=== PATIENT | female | born 1980 | race African-American/Black ===

== ENCOUNTER 2016-03-23 16:18 | Emergency (ER) | payer MEDICAID ==
[~2016-03-23] VITALS: Ht 167.6 cm; Wt 80.0 kg
[~2016-03-23 16:18] MED LIST: DOXY100C PO; IBUP-232 PO; IBUP800T23 PO; LORTA5 PO; MOBI15TA PO
[2016-03-23 16:20] VITALS: BP 164/93; PULSE 98; RESP 20; TEMP 98; O2SAT 100
--- NOTE | 2016-03-23 16:55 | PD ---
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 Patient reports that she found out a week ago that her was cheating on her, reports that for the past week she has noticed a foul-smelling odor from her vagina with thick discharge. Reports that she has noticed increased pruritus. Patient was told that she should be concerned for possible STD. Patient also reporting urinary urgency and frequency, concerned that she may possibly have UTI. Patient with no fevers or chills at this time. Patient with no abdominal pain. Patient no nausea or vomiting. PFSH Past Medical History Asthma: Yes Depression: Yes Diminished Hearing: No Respiratory: Yes (asthma) Immunizations Current: Yes ?: Not : 5 Para: 3 : 2 Tubal Ligation: Yes Past Surgical History Abdominal Surgery: Yes () Section: Yes (x2) Family History Family History: Negative Social History Alcohol Use: No (occ) Tobacco Use: Yes (6-7 cigs daily) Substance Use: No Allergies-Medications (Allergen,Severity, Reaction): Coded Allergies: No Known Allergies (Verified , 01/12/16) Reported Meds & Prescriptions Reported Meds & Active Scripts Active No Active Prescriptions or Reported Medications Review of Systems General / Constitutional: No: Fever Eyes: No: Visual changes HENT: No: Headaches Cardiovascular: No: Chest Pain or Discomfort Respiratory: No: Shortness of Breath Gastrointestinal: No: Abdominal Pain Genitourinary: Positive: Urgency, Frequency, Dysuria, No: Vaginal Bleeding Musculoskeletal: No: Pain Skin: No Rash Neurologic: No: Weakness Psychiatric: No: Depression Endocrine: No: Polydipsia Hematologic/Lymphatic: No: Easy Bruising Physical Exam Narrative GENERAL: No acute distress, nontoxic SKIN: Warm and dry. HEAD: Atraumatic. Normocephalic. EYES: Pupils equal and round. No scleral icterus. No injection or drainage. ENT: No nasal bleeding or discharge. Mucous membranes pink and moist. NECK: Trachea midline. No JVD. CARDIOVASCULAR: Regular rate and rhythm. No murmur appreciated. RESPIRATORY: No accessory muscle use. Clear to auscultation. Breath sounds equal bilaterally. GASTROINTESTINAL: Abdomen soft, non-tender, nondistended. : exam performed with RN at bedside, pt with no cmt or adnexal tenderness, pt with no discharge on eval MUSCULOSKELETAL: No obvious deformities. No clubbing. No cyanosis. No edema. NEUROLOGICAL: Awake and alert. No obvious cranial nerve deficits. Motor grossly within normal limits. Normal speech. PSYCHIATRIC: Patient anxious and upset emergency room, patient crying exam, patient denies SI or HI Data Data Last Documented VS Vital Signs Date Time Temp Pulse Resp B/P Pulse Ox O2 Delivery O2 Flow Rate FiO2 03/23/16 16:20 98.0 98 20 164/93 100 Room Air Orders Gc And Chlamydia Pcr (03/23/16 16:43) Wet Prep Profile (03/23/16 16:43) Urinalysis - C+S If Indicated (03/23/16 16:43) Ed Urine Pregnancytest Poc (03/23/16 16:43) Azithromycin Powd Pack (Zithromax Powd P (03/23/16 17:45) Ceftriaxone Inj (Rocephin Inj) (03/23/16 17:45) Lidocaine 1% Inj (50 Ml) (Xylocaine 1% I (03/23/16 17:45) Azithromycin (Zithromax) (03/23/16 18:15) Labs Laboratory Tests Test 03/23/16 03/23/16 17:15 17:35 Urine Color YELLOW Urine Turbidity HAZY Urine pH 6.0 Urine Specific [place] 1.029 Urine Protein TRACE mg/dL Urine Glucose (UA) NEG mg/dL Urine Ketones NEG mg/dL Urine Occult Blood NEG Urine Nitrite NEG Urine Bilirubin NEG Urine Urobilinogen 2.0 MG/DL Urine Leukocyte Esterase TRACE Urine RBC 1 /hpf Urine WBC 3 /hpf Urine Squamous Epithelial 30 /hpf Cells Urine Mucus MANY /lpf Microscopic Urinalysis Comment CULT NOT INDICATED Clue Cells (Wet Prep) NONE SEEN Vaginal Trichomonas (Wet Prep) NONE SEEN Vaginal Yeast (Wet Prep) NONE SEEN MDM Medical Decision Making Medical Screen Exam Complete: Yes Emergency Medical Condition: Yes Interpretation(s) Vital Signs Date Time Temp Pulse Resp B/P Pulse Ox O2 Delivery O2 Flow Rate FiO2 03/23/16 16:20 98.0 98 20 164/93 100 Room Air Vital Signs Date Time Temp Pulse Resp B/P Pulse Ox O2 Delivery O2 Flow Rate FiO2 03/23/16 16:20 98.0 98 20 164/93 100 Room Air Differential Diagnosis Cervicitis, urethritis, cystitis Narrative Course 35-year-old female who presents to emergency department for evaluation of possible STD. Patient reports that she has noticed increased thick discharge per vagina for the past week. Patient assumed that she had a yeast infection and tried using Monistat [id number] with no relief of symptoms. She recently found out that her has been cheating her and is concerned for possible STD ED test ordered UA ordered as pt is having UTI symptoms with dysuria/urgency/freq Plan to perform pelvic exam and check for G/C and Trich Pelvic exam performed with RN at bedside. Patient requests to be prophylactically treated for possible gonorrhea and chlamydia. Patient understands importance of follow up with cultures from today, understands if cultures are positive, her will need to be treated as well. Diagnosis Primary Impression: Cervicitis Patient Instructions: General Instructions Additional Instructions: Please return to ER as needed Please follow up with CULTURES from today Please refrain from sexual activities until all cultures have been resulted, if cultures are positive, all sexual partners will need to be treated Scripts No Active Prescriptions or Reported Meds Disposition: 01 DISCHARGE HOME Condition: Stable Eliza Chapman DO Mar 23, 2016 16:55
[2016-03-23] MEDS ORDERED: cefTRIAXone 250 MG VIAL IM ONE (17:45)
[2016-03-23] MEDS ORDERED: AZITHROMYCIN PWD FOR SUSP 1 GM PACKET PO ONE (17:45)
[2016-03-23] MEDS ORDERED: LIDOCAINE HCL 1% 50 ML VIAL IM ONE (17:45)
[2016-03-23 18:03] LABS: BLOOD, URINE NEG (NEG); COMMENT (UR) CULT NOT INDICATED; CULTURE IF INDICATED CULT NOT INDICATED; GLUCOSE,URINE NEG (NEG); KETONE, URINE NEG (NEG); MUCUS URINE MANY /lpf (OCC); NITRITE,URINE NEG (NEG); SQUAMOUS EPITHELIAL CELL URINE 30 /hpf (0-5); URINE COLOR YELLOW (YELLW/STRAW)
[2016-03-23] MEDS ORDERED: AZITHROMYCIN 250 MG TAB PO ONE (18:15)
[2016-03-23 20:07] LABS: CHLAMYDIA PCR NOT DETECTED (NOT DETECT); NEISSERIA PCR NOT DETECTED (NOT DETECT)
== END 2016-03-23 18:43 | disposition home or self-care (01) ==
LOC: NEPE 16:18
DX: N72 Inflammatory disease of cervix uteri (principal)
CPT/HCPCS: 81001; 84703; 87210; 87491; 87591; 96372; 99283; J0696

== ENCOUNTER 2016-05-11 17:29 | Emergency (ER) | payer MEDICAID, OTHER ==
[~2016-05-11] VITALS: Ht 167.6 cm; Wt 77.2 kg
[2016-05-11 17:30] VITALS: BP 163/86; PULSE 98; RESP 20; TEMP 97.5; O2SAT 100
[2016-05-11] MEDS ORDERED: DICL50TA3 PO (19:05)
[2016-05-11] MEDS ORDERED: AMOX500C PO (19:05)
--- NOTE | 2016-05-11 19:09 | PD ---
HPI Chief Complaint: Oral / Dental Pain or Problem Time Seen by Provider: 19:07 Travel History International Travel<30 days: No Contact w/Intl Traveler<30days: No Traveled to known affect area: No History of Present Illness HPI 35-year-old black female presents to emergency department with complains of right upper tooth #1 pain. She states that part of her tooth has been breaking off. She's had a dental carry in this tooth for some time. She states the pain is moderate to severe. Radiates to her right ear. No alleviating factors. PFSH Past Medical History Asthma: Yes Depression: Yes Diminished Hearing: No Respiratory: Yes (asthma) Immunizations Current: Yes Tetanus Vaccination: > 5 Years ?: Not LMP: DEPO : 5 Para: 3 : 2 Tubal Ligation: Yes Past Surgical History Abdominal Surgery: Yes () Section: Yes (x2) Social History Alcohol Use: Yes (occ) Tobacco Use: Yes (6-7 cigs daily) Substance Use: No Allergies-Medications (Allergen,Severity, Reaction): Coded Allergies: No Known Allergies (Verified , 05/11/16) Reported Meds & Prescriptions Reported Meds & Active Scripts Active Diclofenac Sodium DR (Diclofenac Sodium) 50 Mg Tabdr 50 Mg PO TID Amoxicillin 500 Mg Cap 500 Mg PO TID Review of Systems Except as stated in HPI: all other systems reviewed are Neg Physical Exam Narrative GENERAL: Well-developed, well-nourished in no acute distress. Nontoxic appearing. HEAD: Normocephalic, atraumatic. EYES: Pupils equal round and reactive. Extraocular motions intact. No scleral icterus. No injection or drainage. ENT: TMs clear without erythema. The external auditory canals clear. Nose: clear . Posterior pharynx is pink and moist. No tonsillar edema or exudate. Uvula midline. Airway patent. Patient has a large dental carry in tooth #1. The tooth is decayed nearly to the gumline. There is gingival erythema but no edema. No obvious abscess. NECK: Trachea midline.Supple, nontender, moves head freely. No central bony tenderness or spasm. CARDIOVASCULAR: Regular rate and rhythm without murmurs, gallops, or rubs. RESPIRATORY: Clear to auscultation. Breath sounds equal bilaterally. No wheezes , rales, or rhonchi. GASTROINTESTINAL: Abdomen soft, non-tender, nondistended. No hepato-splenomegaly , or palpable masses. No guarding. EXTREMITIES: No clubbing, cyanosis, or edema. No joint tenderness, effusion, or edema noted. BACK: Nontender without deformity or crepitance. No flank tenderness. Data Data Last Documented VS Vital Signs Date Time Temp Pulse Resp B/P Pulse Ox O2 Delivery O2 Flow Rate FiO2 05/11/16 17:30 97.5 98 20 163/86 100 Room Air Orders Amoxicillin (Trimox) (05/11/16 19:15) Acetamin-Hydrocod 325-5 Mg ([place] 5-325 (05/11/16 19:15) MDM Medical Decision Making Medical Screen Exam Complete: Yes Emergency Medical Condition: Yes Medical Record Reviewed: Yes Differential Diagnosis MDM: Moderate Differential diagnoses: Dental abscess, dental caries, osteitis, cellulitis Narrative Course Patient given amoxicillin 500 and Lortab 5 mg. This is dental caries, dentalgia Diagnosis Primary Impression: Dental caries Additional Impression: Dentalgia Patient Instructions: Narcotic given in the ED, General Instructions Additional Instructions: Rest. Saltwater gargles. Sunflower oil on cotton balls. Amoxicillin and diclofenac. follow-up with a dentist as soon as possible. And return to the ER if any problems. Med/Other Pt SpecificInfo: Prescription(s) given Scripts Diclofenac Sodium DR 50 Mg Tabdr50 Mg PO TID #21 TAB Prov:Princess Nice MD 05/11/16 Amoxicillin 500 Mg [id number] Mg PO TID #30 CAP Prov:Princess Nice MD 05/11/16 Disposition: 01 DISCHARGE HOME Condition: Stable José Isabel May 11, 2016 19:09
[2016-05-11] MEDS ORDERED: AMOXICILLIN (TRIHYDRATE) 500 MG CAP PO ONE (19:15)
[2016-05-11] MEDS ORDERED: ACETAMINOPHEN/HYDROcodone 325 MG/5 MG TAB PO ONE (19:15)
== END 2016-05-11 19:27 | disposition home or self-care (01) ==
LOC: NEPB 17:29
DX: K02.9 Dental caries, unspecified (principal); K08.89 Other specified disorders of teeth and supporting structures
CPT/HCPCS: 99282

== ENCOUNTER 2016-11-25 12:28 | Emergency (ER) | payer MEDICAID ==
[~2016-11-25] VITALS: Ht 170.2 cm; Wt 75.0 kg
[~2016-11-25 12:28] MED LIST changes: +AMOX500C PO; +DICL50TA3 PO; -DOXY100C PO; -IBUP-232 PO; -IBUP800T23 PO; -LORTA5 PO; -MOBI15TA PO
[2016-11-25 12:31] VITALS: BP 132/73; PULSE 102; RESP 17; TEMP 98.4; O2SAT 98
[2016-11-25] MEDS ORDERED: PERM5CRE11 TOPICAL (14:05)
--- NOTE | 2016-11-25 14:13 | PD ---
HPI Chief Complaint: Skin Problem Time Seen by Provider: 13:51 Travel History International Travel<30 days: No Contact w/Intl Traveler<30days: No Traveled to known affect area: No History of Present Illness HPI The patient was seen and examined in the presence of the nurse. This patient went to an itchy skin rash. Duration 3 days. No fever. No drainage. Started on the right arm but has spread from there. PFSH Past Medical History Asthma: Yes Depression: Yes Diminished Hearing: No Psychiatric: Yes Respiratory: Yes (asthma) Immunizations Current: Yes Tetanus Vaccination: > 5 Years Influenza Vaccination: Yes ?: Not LMP: 11/06/16 : 5 Para: 3 : 2 Tubal Ligation: Yes Past Surgical History Abdominal Surgery: Yes () Section: Yes (x2) Social History Alcohol Use: Yes (occ) Tobacco Use: Yes (6-7 cigs daily) Substance Use: No (pt denies) Allergies-Medications (Allergen,Severity, Reaction): Coded Allergies: No Known Allergies (Verified , 11/25/16) Reported Meds & Prescriptions Reported Meds & Active Scripts Active Elimite Topical (Permethrin) 5% Cream 1 Applic TOPICAL ONCE Review of Systems General / Constitutional: No: Fever HENT: No: Headaches Cardiovascular: No: Chest Pain or Discomfort Physical Exam Narrative GASTROINTESTINAL: Abdomen soft, non-tender, nondistended. Positive bowel sounds. No hepato-splenomegaly, or palpable masses. No guarding. Psych: Normal mood and affect. Normal insight and judgment. Skin: Has a scattering of excoriated lesions on the arms and torso. There are all so scratched up it's hard to identify specifics Data Data Last Documented VS Vital Signs Date Time Temp Pulse Resp B/P (MAP) Pulse Ox O2 Delivery O2 Flow Rate FiO2 11/25/16 13:46 78 16 11/25/16 12:31 98.4 132/73 (92) 98 MDM Medical Decision Making Medical Screen Exam Complete: Yes Emergency Medical Condition: Yes Medical Record Reviewed: Yes Differential Diagnosis Scabies, eczema, dermatitis Narrative Course I have reviewed the patient's electronic medical record. It's hard to identify this rash was certainty. I discussed this with the patient. She would like to empirically try to treat something. I think scabies is most likely but certainly can't guarantee that is what this is. I wrote a prescription for Elimite for her to try. She should follow-up with primary care or dermatology. I advised her to hot water wash her linens Diagnosis Primary Impression: Rash Additional Instructions: The patient was advised to follow up with their physician and return if they worsen. Med/Other Pt SpecificInfo: Prescription(s) given Scripts Permethrin Topical (Elimite Topical) 5% Cream 1 APPLIC TOPICAL ONCE for Scabies, #1 TUBE 0 Refills Prov: Jose Brannon MD 11/25/16 Disposition: 01 DISCHARGE HOME Condition: Stable Jose Brannon MD Nov 25, 2016 14:13
[2016-11-25 14:15] VITALS: BP 122/81; TEMP 97.8
== END 2016-11-25 14:24 | disposition home or self-care (01) ==
LOC: NEPD 12:28
DX: R21 Rash and other nonspecific skin eruption (principal); J45.909 Unspecified asthma, uncomplicated; F32.9 Major depressive disorder, single episode, unspecified; F17.210 Nicotine dependence, cigarettes, uncomplicated
CPT/HCPCS: 99283

== ENCOUNTER 2016-12-14 12:56 | Emergency (ER) | payer SELFPAY ==
[~2016-12-14] VITALS: Ht 170.2 cm; Wt 75.0 kg
[~2016-12-14 12:56] MED LIST changes: -AMOX500C PO; -DICL50TA3 PO; +PERM5CRE11 TOPICAL
[2016-12-14 12:58] VITALS: BP 150/86; PULSE 90; RESP 14; TEMP 98.2; O2SAT 99
== END 2016-12-14 13:38 | disposition left against medical advice (07) ==
LOC: NEPK 12:56
DX: Z03.89 Encounter for observation for other suspected diseases and conditions ruled out (principal)
CPT/HCPCS: 99281

== ENCOUNTER 2017-01-29 16:47 | Emergency (ER) | payer SELFPAY ==
[~2017-01-29] VITALS: Ht 167.6 cm; Wt 80.0 kg
[2017-01-29 16:49] VITALS: BP 168/91; PULSE 99; RESP 17; TEMP 97.7; O2SAT 100
--- NOTE | 2017-01-29 17:22 | PD ---
HPI Chief Complaint: Allergic/Adverse Reaction Time Seen by Provider: 17:16 Travel History International Travel<30 days: No Contact w/Intl Traveler<30days: No Traveled to known affect area: No History of Present Illness HPI 36-year-old female here for evaluation of possible allergic reaction to a hair dye. The patient reports that the symptoms started yesterday evening after using the hair dye. She experienced burning and pruritic sensation to her scalp. Today she noticed a rash as well as facial swelling. She has had a similar reaction before to hair dye. No tongue or lip swelling. No dyspnea. No nausea or vomiting. She took Benadryl today without relief of symptoms. PFSH Past Medical History Asthma: Yes Depression: Yes Diminished Hearing: No Psychiatric: Yes Respiratory: Yes (asthma) Immunizations Current: Yes ?: Not : 5 Para: 3 : 2 Tubal Ligation: Yes Past Surgical History Abdominal Surgery: Yes () Section: Yes (x2) Social History Alcohol Use: Yes (occ) Tobacco Use: Yes (6-7 cigs daily) Substance Use: No (pt denies) Allergies-Medications (Allergen,Severity, Reaction): Coded Allergies: No Known Allergies (Verified Allergy, Unknown, 01/29/17) Uncoded Allergies: hair dye (Allergy, Mild, 01/29/17) Reported Meds & Prescriptions Reported Meds & Active Scripts Active No Active Prescriptions or Reported Medications Review of Systems Except as stated in HPI: all other systems reviewed are Neg Physical Exam Narrative GENERAL: Well-developed, well-nourished, awake, alert, comfortable, no apparent distress. SKIN: Focused skin assessment warm/dry. Few areas of excoriation to her scalp. HEAD: Atraumatic. Normocephalic. Mild facial swelling. EYES: Pupils equal and round. No scleral icterus. No injection or drainage. ENT: No nasal bleeding or discharge. Mucous membranes pink and moist. No tongue or lip swelling. Normal phonation. No drooling or stridor. NECK: Trachea midline. No JVD. CARDIOVASCULAR: Regular rate and rhythm. RESPIRATORY: No accessory muscle use. Clear to auscultation. Breath sounds equal bilaterally. GASTROINTESTINAL: Abdomen soft, non-tender, nondistended. MUSCULOSKELETAL: No obvious deformities. No clubbing. No cyanosis. No edema. NEUROLOGICAL: Awake and alert. No obvious cranial nerve deficits. Motor grossly within normal limits. Normal speech. PSYCHIATRIC: Appropriate mood and affect; insight and judgment normal. Data Data Last Documented VS Vital Signs Date Time Temp Pulse Resp B/P (MAP) Pulse Ox O2 Delivery O2 Flow Rate FiO2 01/29/17 17:34 100 18 139/81 (100) 100 Room Air 01/29/17 16:49 97.7 Orders Orders Basic Metabolic Panel (Bmp) (01/29/17 17:19) Complete Blood Count With Diff (01/29/17 17:19) Ecg Monitoring (01/29/17 17:19) Iv Access Insert/Monitor (01/29/17 17:19) Methylprednisolone So Succ Inj (Solumedr (01/29/17 17:30) Famotidine Inj (Pepcid Inj) (01/29/17 17:30) Sodium Chloride 0.9% Flush (Ns Flush) (01/29/17 17:30) Beta Hcg (Quant/Titer) (01/29/17 17:19) Methylprednisolone So Succ Inj (Solumedr (01/29/17 18:00) Famotidine (Pepcid) (01/29/17 18:00) Labs Laboratory Tests Test 01/29/17 17:35 White Blood Count 13.5 TH/MM3 Red Blood Count 4.48 MIL/MM3 Hemoglobin 13.6 GM/DL Hematocrit 40.5 % Mean Corpuscular Volume 90.4 FL Mean Corpuscular Hemoglobin 30.3 PG Mean Corpuscular Hemoglobin Concent 33.5 % Red Cell Distribution Width 13.9 % Platelet Count 230 TH/MM3 Mean Platelet Volume 11.6 FL Neutrophils (%) (Auto) 53.4 % Lymphocytes (%) (Auto) 33.0 % Monocytes (%) (Auto) 5.8 % Eosinophils (%) (Auto) 7.5 % Basophils (%) (Auto) 0.3 % Neutrophils # (Auto) 7.2 TH/MM3 Lymphocytes # (Auto) 4.4 TH/MM3 Monocytes # (Auto) 0.8 TH/MM3 Eosinophils # (Auto) 1.0 TH/MM3 Basophils # (Auto) 0.0 TH/MM3 CBC Comment AUTO DIFF Blood Urea Nitrogen 17 MG/DL Creatinine 0.76 MG/DL Random Glucose 89 MG/DL Calcium Level 8.6 MG/DL Sodium Level 138 MEQ/L Potassium Level 4.4 MEQ/L Chloride Level 108 MEQ/L Carbon Dioxide Level 22.5 MEQ/L Anion Gap 8 MEQ/L Estimat Glomerular Filtration Rate 105 ML/MIN Human Chorionic Gonadotropin, Quant LESS THAN 1 MIU/ML MDM Medical Decision Making Medical Screen Exam Complete: Yes Emergency Medical Condition: Yes Differential Diagnosis Allergic reaction, contact dermatitis, anaphylaxis, Narrative Course Nurses were unable to obtain IV access. Because of this the IV that indications were written for oral and IM. Vital signs and basic labs reviewed. The patient was given IM Solu-Medrol and oral Pepcid, and on reassessment she feels much improved. She has more of a contact dermatitis. She'll be discharged home with a perception for prednisone, and advised to take Benadryl for pruritus. PMD follow-up this week. Patient informed on when to return to the emergency department. She verbalizes understanding and agreement with plan. Diagnosis Primary Impression: Contact dermatitis Qualified Codes: L23.9 - Allergic contact dermatitis, unspecified cause Referrals: Primary Care Physician 3 days Additional Instructions: Follow-up with a primary care physician this week. Return to the emergency department for worsening symptoms or any other concerns. Scripts Prednisone (Prednisone) 50 Mg Tab 50 MG PO DAILY for 5 Days, #5 TAB 0 Refills Prov: Rupert Estrada MD 01/29/17 Disposition: 01 DISCHARGE HOME Condition: Stable Rupert Estrada MD Jan 29, 2017 17:22
[2017-01-29] MEDS ORDERED: FAMOTIDINE 20 MG/2 ML VIAL IV PUSH ONE (17:30)
[2017-01-29] MEDS ORDERED: SODIUM CHLORIDE 0.9% FLUSH 10 ML FLUSH IV FLUSH PRN (17:30)
[2017-01-29] MEDS ORDERED: methylPREDNISolone SOD SUCC 125 MG/2 ML VIAL IM ONE (17:30)
[2017-01-29 17:34] VITALS: BP 139/81; PULSE 100; RESP 18; O2SAT 100
[2017-01-29] MEDS ORDERED: FAMOTIDINE 20 MG TAB PO ONE (18:00)
[2017-01-29] MEDS ORDERED: methylPREDNISolone SOD SUCC 125 MG/2 ML VIAL IM SCH (18:00)
[2017-01-29 18:07] LABS: AUTOMATED NEUTROPHIL # 7.2 TH/MM3 (1.8-7.7); BASOPHIL % 0.3 % (0.0-2.0); EOSINOPHIL % 7.5 % (0.0-4.0); HEMATOCRIT 40.5 % (35.0-46.0); LYMPHOCYTE # 4.4 TH/MM3 (1.0-4.8); MEAN CELL VOLUME 90.4 FL (80.0-100.0); MEAN CORPUSCULAR HEMOGLOBIN 30.3 PG (27.0-34.0); MEAN CORPUSCULAR HGB CONC 33.5 % (32.0-36.0); MONO % 5.8 % (0.0-8.0); NEUT % 53.4 % (16.0-70.0); PLATELET COUNT 230 TH/MM3 (150-450); RED BLOOD COUNT 4.48 MIL/MM3 (4.00-5.30); RED CELL DISTRIBUTION WIDTH 13.9 % (11.6-17.2); WHITE BLOOD COUNT 13.5 TH/MM3 (4.0-11.0)
[2017-01-29 18:29] LABS: BETA HCG QUANT LESS THAN 1 MIU/ML (0-5)
[2017-01-29 18:30] LABS: ANION GAP 8 MEQ/L (5-15); BICARBONATE 22.5 MEQ/L (21.0-32.0); BLOOD UREA NITROGEN 17 MG/DL (7-18); CHLORIDE 108 MEQ/L (98-107); GLOMERULAR FILTRATION RATE 105 ML/MIN (>89); SODIUM (NA) 138 MEQ/L (136-145)
[2017-01-29 18:33] LABS: POTASSIUM 4.4 MEQ/L (3.5-5.1)
[2017-01-29 19:02] LABS: HEMO FLAGS AUTO DIFF
[2017-01-29 19:03] LABS: PLATELET MORPHOLOGY ENLARGED (NORMAL); SCAN/DIFF AUTO DIFF CONFIRMED
[2017-01-29 19:04] LABS: PLATELET ESTIMATE SMEAR NORMAL (NORMAL)
[2017-01-29] MEDS ORDERED: PRED50 PO (19:06)
[2017-01-29 19:26] VITALS: BP 156/88
== END 2017-01-29 19:28 | disposition home or self-care (01) ==
LOC: NEPD 16:47
DX: L23.4 Allergic contact dermatitis due to dyes (principal); J45.909 Unspecified asthma, uncomplicated; F32.9 Major depressive disorder, single episode, unspecified; F17.210 Nicotine dependence, cigarettes, uncomplicated
CPT/HCPCS: 80048; 84702; 85025; 96372; 99284; J2930

== ENCOUNTER 2017-02-10 00:36 | Emergency (ER) | payer SELFPAY ==
[~2017-02-10] VITALS: Ht 167.6 cm; Wt 82.0 kg
[~2017-02-10 00:36] MED LIST changes: -PERM5CRE11 TOPICAL; +PRED50 PO
[2017-02-10 00:37] VITALS: BP 131/92; PULSE 135; RESP 16; TEMP 97.9; O2SAT 100
[2017-02-10] MEDS ORDERED: VIST50CA PO (00:54)
[2017-02-10] MEDS ORDERED: PRED20 PO (00:54)
[2017-02-10] MEDS ORDERED: FAMO1TAB73 PO (00:54)
[2017-02-10] MEDS ORDERED: diphenhydrAMINE HCL 50 MG/ML VIAL IM ONE (01:00)
[2017-02-10] MEDS ORDERED: DEXAMETHASONE SOD PHOS 20 MG/5 ML VIAL IM ONE (01:00)
--- NOTE | 2017-02-10 01:01 | PD ---
HPI Chief Complaint: Skin Problem Time Seen by Provider: 00:44 Travel History International Travel<30 days: No Contact w/Intl Traveler<30days: No Traveled to known affect area: No History of Present Illness HPI 36-year-old black female returns emergency department stating that she has had persistent allergic reaction to hair dye. She was seen here for exposure to hair dye the day before . She was given steroids which helped just momentarily but has worsened again over the last week. She states that she's having a rash around her scalp down into her neck and chest now. It is extremely pruritic she has some weeping of the skin. She denies any fever or chills. Symptoms are moderate. No alleviating factors. Exacerbated by hair dye. PFSH Past Medical History Asthma: Yes Depression: Yes Diminished Hearing: No Psychiatric: Yes Respiratory: Yes (asthma) Immunizations Current: Yes LMP: 02/05/17 : 5 Para: 3 : 2 Tubal Ligation: Yes Past Surgical History Abdominal Surgery: Yes () Section: Yes (x2) Social History Alcohol Use: Yes (occ) Tobacco Use: Yes Substance Use: No (pt denies) Allergies-Medications (Allergen,Severity, Reaction): Coded Allergies: No Known Allergies (Verified Allergy, Unknown, 02/10/17) Uncoded Allergies: hair dye (Allergy, Mild, 01/29/17) Reported Meds & Prescriptions Reported Meds & Active Scripts Active Pepcid (Famotidine) 40 Mg Tab 40 Mg PO BID 7 Days Vistaril (Hydroxyzine Pamoate) 50 Mg Cap 50 Mg PO QID 7 Days Prednisone 20 Mg Tab 40 Mg PO BID 7 Days Prednisone 50 Mg Tab 50 Mg PO DAILY 5 Days Review of Systems General / Constitutional: No: Fever Eyes: No: Visual changes HENT: No: Headaches Cardiovascular: No: Chest Pain or Discomfort Respiratory: No: Shortness of Breath Gastrointestinal: No: Abdominal Pain Genitourinary: No: Dysuria Musculoskeletal: No: Pain Skin: Positive Rash, Positive Itching, Positive Lumps Neurologic: No: Weakness Psychiatric: No: Depression Endocrine: No: Polydipsia Hematologic/Lymphatic: No: Easy Bruising Physical Exam Narrative GENERAL: Well-developed, well-nourished in no acute distress. Nontoxic appearing. HEAD: Normocephalic, patient has edema of the scalp. She has superficial skin breakdown or weeping scattered in her scalp. There are multiple, multiple papular scaly lesions in her scalp down onto her neck and upper chest. Mild erythema. No pustules or vesicles.. EYES: Pupils equal round and reactive. Extraocular motions intact. No scleral icterus. No injection or drainage. ENT: TMs clear without erythema. The external auditory canals clear. Nose: clear . Posterior pharynx is pink and moist. No tonsillar edema or exudate. Uvula midline. Airway patent. NECK: Trachea midline.Supple, nontender, moves head freely. No central bony tenderness or spasm. CARDIOVASCULAR: Regular rate and rhythm without murmurs, gallops, or rubs. RESPIRATORY: Clear to auscultation. Breath sounds equal bilaterally. No wheezes , rales, or rhonchi. GASTROINTESTINAL: Abdomen soft, non-tender, nondistended. No hepato-splenomegaly , or palpable masses. No guarding. EXTREMITIES: No clubbing, cyanosis, or edema. No joint tenderness, effusion, or edema noted. BACK: Nontender without deformity or crepitance. No flank tenderness. Data Data Last Documented VS Vital Signs Date Time Temp Pulse Resp B/P (MAP) Pulse Ox O2 Delivery O2 Flow Rate FiO2 02/10/17 00:37 97.9 135 16 131/92 (105) 100 Room Air Orders Orders Dexamethasone Inj (Decadron Inj) (02/10/17 01:00) Diphenhydramine Inj (Benadryl Inj) (02/10/17 01:00) MDM Medical Decision Making Medical Screen Exam Complete: Yes Emergency Medical Condition: Yes Medical Record Reviewed: Yes Differential Diagnosis MDM: High Differential diagnoses: Abscess, folliculitis, cellulitis, lymphangitis, abrasion, contact dermatitis, allergic reaction Narrative Course PATIENT'S GIVEN Decadron 10 mg IM and 50 mg Benadryl IM. This is allergic reaction to hair dye Diagnosis Primary Impression: allergic reaction to hair dye Patient Instructions: General Instructions Additional Instructions: REST. Use Dove soap. Medications as directed. Recheck with a primary care doctor in the next 2-3 days. Return to ER for any problems. Med/Other Pt SpecificInfo: Prescription(s) given Scripts Famotidine (Pepcid) 40 Mg Tab 40 MG PO BID for 7 Days, #14 TAB 0 Refills Prov: Ira Cartwright MD 02/10/17 Hydroxyzine Pamoate (Vistaril) 50 Mg Cap 50 MG PO QID for 7 Days, CAP 0 Refills Prov: Ira Cartwright MD 02/10/17 Prednisone (Prednisone) 20 Mg Tab 40 MG PO BID for 7 Days, #28 TAB 0 Refills Prov: Ira Cartwright MD 02/10/17 Disposition: 01 DISCHARGE HOME Condition: Stable José Isabel Feb 10, 2017 01:01
== END 2017-02-10 01:42 | disposition home or self-care (01) ==
LOC: NEPD 00:36
DX: T49.4X5A Adverse effect of keratolytics, keratoplastics, and other hair treatment drugs and preparations, initial encounter (principal); T78.40XA Allergy, unspecified, initial encounter; R21 Rash and other nonspecific skin eruption
CPT/HCPCS: 96372; 99284; J1100; J1200

== ENCOUNTER 2017-07-09 10:20 | Emergency (ER) | payer OTHER ==
[~2017-07-09 10:20] MED LIST changes: +FAMO1TAB73 PO; +PRED20 PO; +VIST50CA PO
[2017-07-09 10:48] VITALS: BP 188/94; PULSE 84; RESP 18; TEMP 98.7; O2SAT 100
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
[2017-07-10] MEDS ORDERED: TYLE325T PO (20:44)
== END 2017-07-09 12:02 | disposition home or self-care (01) ==
LOC: NEPK 10:20
DX: S16.1XXA Strain of muscle, fascia and tendon at neck level, initial encounter (principal); S00.83XA Contusion of other part of head, initial encounter; V43.52XA Car driver injured in collision with other type car in traffic accident, initial encounter; Y92.481 Parking lot as the place of occurrence of the external cause
CPT/HCPCS: 99282

== ENCOUNTER 2017-07-10 18:13 | Emergency (ER) | payer OTHER ==
[~2017-07-10] VITALS: Ht 167.6 cm; Wt 82.0 kg
[2017-07-10 18:14] VITALS: BP 170/81; PULSE 77; RESP 16; TEMP 98.2; O2SAT 99
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
[2017-07-10] MEDS ORDERED: DIAZEPAM 5 MG TAB PO ONE (19:00)
[2017-07-10] MEDS ORDERED: METOCLOPRAMIDE INJ 10 MG in SODIUM CHLORIDE 0.9% INJ 50 ML IV ONE (19:00)
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
[2017-07-10] MEDS ORDERED: KETOROLAC TROMETHAMINE 30 MG/ML (IVP) VIAL IV PUSH ONE (20:15)
[2017-07-10] MEDS ORDERED: TYLE325T PO (20:44)
== END 2017-07-10 20:55 | disposition home or self-care (01) ==
LOC: NEPD 18:13
DX: M79.1 Myalgia (principal); M25.511 Pain in right shoulder
CPT/HCPCS: 70450; 73030; 96365; 96375; 99284; J1885; J2765